=== PATIENT | female | born 1945 | race Caucasian/White ===

== ENCOUNTER → 2017-04-28 | Outpatient (CLI) | payer OTHER ==
[~2017-04-28] MED LIST: ASPIRIN PO; AVAPRO PO; CALCIUM 500 + D1 TAB PO; CARAFATE1 G PO; CARDIZEM CD PO; CELEBREX PO; COLACE PO; COUMADIN PO; CRESTOR10 MG PO; DARVOCET-N 1001 TAB PO; DEXILANT60 MG PO; FLAX SEED OIL1000 MG PO; FLAXSEED OIL1000 M2 PO; LOSARTAN POTAS100 MG PO; LOVENOX SUBQ; MULTI-VITAMIN1 TAB PO; NEXIUM PO; PREMARIN; PREMPRO PO; PRILOSEC PO; TYLOX 5/500 CAP1 CAP PO; VESICARE PO; VITAMIN D2000 UNI1; ZOCOR PO; [UNRECOGNIZED DRUG - OTHER] PO
--- NOTE | ~2017-04-28 | CR63 ---
[facility] A Service of [facility] RADIOLOGY TEXT RESULTS PATIENT: MIO ALLEN LOCATION: [facility] : 47 UNIT #: [id number] AGE: [address]: Nikolai Dee MD SEX: F ORDER DR: [id number] [facility] [address] [place], [place] [address] [id number] O MR#: [id number] Acc #: [id number] NAME: MIO ALLEN : 1945 SEX: F STUDY DATE/TIME: 04/28/2017 12:35 UNIT: [facility] ROOM: STUDY DESCRIPTION: CR Chest 2 View Attending Physician: Nikolai Dee M.D. Referring Physician: Nikolai Dee M.D. Ordering Physician: Nikolai Dee M.D. Primary Care Physician: Bj Mullen M.D. MEDICAL IMAGING REPORT This report is preliminary unless electronic signature is present EXAM Two-view chest INDICATION Renal cell carcinoma. Shortness of air with exertion. Hypertension. FINDINGS PA and lateral views of the chest compared to 04/29/2016. Heart and mediastinal contours are normal. Lungs are clear. No pleural effusion. IMPRESSION No acute cardiopulmonary findings. Dictated by... Timbo Fernandes M.D. THIS IS AN ELECTRONICALLY VERIFIED REPORT Timbo Fernandes M.D. at 04/30/2017 9:48 AM YORDNA/mila TD: 04/29/2017 08:51 JOB #: [id number] MEDICAL IMAGING REPORT Page 1 of 1 COPY
[2017-04-28 12:20] LABS: HEMATOCRIT 38.7 % (35.0-45.0); HEMOGLOBIN 13.2 gm/dL (12.0-16.0); MEAN CELL VOLUME 92.1 FL (83-96); MEAN CORPUSCULAR HEMOGLOBIN 31.3 PG (28-34); MEAN PLATELET VOLUME 7.2 FL (6.5-11.5); RED BLOOD COUNT 4.2 X10e (3.90-5.30); RED CELL DISTRIBUTION WIDTH 12.5 % (11.0-15.5); WHITE BLOOD COUNT 4.5 X10e3 (4.0-10.5)
[2017-04-28 13:27] LABS: ALBUMIN SERUM 4.1 g/dL (3.5-5.0); BILIRUBIN,TOTAL 0.4 mg/dL (0.2-2.0); CALCIUM SERUM 8.9 mg/dL (8.4-10.2); CREATININE SERUM 0.7 mg/dL (0.6-1.4); GLOM FILT RATE Estimated 87.8 mL/min (>60); POTASSIUM 4.4 mmol/L (3.5-5.1); PROTEIN TOTAL SERUM 6.9 g/dL (6.0-8.3)
== END | disposition home or self-care (01) ==
LOC: CLAB 11:09
PROVIDERS: Urology
DX: C64.9 Malignant neoplasm of unspecified kidney, except renal pelvis (principal); R06.02 Shortness of breath; I10 Essential (primary) hypertension
CPT/HCPCS: 71020; 80053; 85027